=== PATIENT | female | born 1985 | race African-American/Black ===

== ENCOUNTER 2017-10-10 13:59 | Observation (INO) | payer BC, OTHER | END 2017-10-10 15:05 | disposition home or self-care (01) | LOC: L&D 13:59 | PROVIDERS: ADMIT Obstetrics & Gynecology; ATTEND Obstetrics & Gynecology | DX: O62.9 Abnormality of forces of labor, unspecified (principal); Z3A.35 35 weeks gestation of pregnancy | CPT/HCPCS: 99281; G0378 ==